=== PATIENT | male | born 1955 | race Caucasian/White ===

== ENCOUNTER 2016-04-21 08:38 | Emergency (ER) | payer BC, OTHER ==
[~2016-04-21] VITALS: Ht 182.9 cm; Wt 118.5 kg
[2016-04-21 09:21] LABS: EOSINOPHIL (%) 0.2 % (0-5); HEMATOCRIT 41.7 % (38.0-50.0); IMMATURE GRANULOCYTE (%) 0.3 % (0.0-0.7); IMMATURE GRANULOCYTE COUNT 0.4 K/uL; LYMPHOCYTE COUNT 1.7 K/uL (1.0-2.8); MCH 28.9 PG (29.0-34.0); MCHC 33.8 G/DL (30.0-36.0); MCV 85.5 FL (86-99); MEAN PLAT.VOLUME 10.8 uM^3 (9.0-12.4); MONOCYTE (%) 6.6 % (3-12); MONOCYTE COUNT 0.9 K/uL (0-0.8); NEUTROPHIL (%) 80.3 % (45-76); NEUTROPHIL COUNT 10.7 K/uL (1.8-6.4); PLATELET COUNT 197 K/uL (156-360); RBC DIS.WIDTH-CV 13.6 % (11.8-14.6); RBC DIS.WIDTH-SD 41.9 % (39-53); RED BLOOD COUNT 4.88 M/uL (4.00-5.50); WHITE BLOOD COUNT 13.4 K/uL (4.1-10.2)
[2016-04-21 09:24] LABS: CARBON DIOXIDE (BICARBONATE) 29.9 MEQ/L (20-31)
[2016-04-21 09:29] LABS: CHLORIDE 104 mEq/L (99-109); POTASSIUM 3.8 mEq/L (3.7-5.4); SODIUM 139 mEq/L (136-147)
[2016-04-21 09:31] LABS: GLUCOSE 239 mg/dL (70-99)
[2016-04-21 09:32] LABS: ANION GAP 10 MEQ/L (2-14)
[2016-04-21 09:33] LABS: TOTAL BILIRUBIN 0.5 mg/dL (0.0-1.0)
[2016-04-21 09:35] LABS: ALKALINE PHOSPHATASE 93 IU/L (3-129); GFR ESTIMATE (CALCULATED) > 59 mL/min/
[2016-04-21 09:36] LABS: UREA NITROGEN (BUN) 13 mg/dL (9-23)
[2016-04-21] MEDS ORDERED: NAPROXEN500 MG PO (11:45)
[2016-04-21] MEDS ORDERED: PERCOCET 5/31 TABLET PO (11:45)
[2016-04-21 12:04] LABS: ADD MIUA? NO; BILIRUBIN NEGATIVE; BLOOD NEGATIVE; COLOR YELLOW ((YELLOW)); GLUCOSE (STRIP) 500; KETONES NEGATIVE; LEUKOCYTES NEGATIVE; NITRITE NEGATIVE; PH, URINE 6.5 (5-8); PROTEIN (STRIP) TRACE; SPECIFIC GRAVITY 1.036 (1.000-1.030); UCUL ADDED? NO
[2016-04-21 12:30] LABS: Estimated Average Glucose 171 mg/dL (70-123); HEMOGLOBIN A1c (GLYCOHEMOGLOB) 7.6 % HGB (Below 5.7)
[2016-04-21 13:30] VITALS: BP 118/59
[2016-04-21] MEDS ORDERED: DAILY VALUE1 EACH PO (20:13)
[2016-04-21] MEDS ORDERED: LIALDA1.2 GM PO (20:13)
[2016-04-21] MEDS ORDERED: PROBIOTIC1 EAC1 PO (20:14)
== END 2016-04-21 16:23 | disposition home or self-care (01) ==
LOC: EME 08:38
PROVIDERS: Physician Assistant
DX: L03.115 Cellulitis of right lower limb (principal); E11.9 Type 2 diabetes mellitus without complications; D72.829 Elevated white blood cell count, unspecified
CPT/HCPCS: 73701; 80053; 81003; 82803; 83036; 83605; 85025; 87040; 93971; 99281; 99285; J3370; J7120